=== PATIENT | female | born 1950 | race Caucasian/White ===

== ENCOUNTER 2019-04-18 17:34 | Emergency (ER) | payer BC, MEDICARE ==
[~2019-04-18] VITALS: Ht 162.6 cm; Wt 77.0 kg
[~2019-04-18 17:34] MED LIST: MECL12.5 PO; ONDA8TAB6 PO
[2019-04-18 17:59] VITALS: BP 160/86
[2019-04-18 18:44] LABS: CLARITY,URINE CLOUDY (Clear); COLOR,URINE YELLOW (Yellow); GLUCOSE, URINE NEGATIVE (Neg); KETONES,URINE NEGATIVE (Neg); LEUKOCYTE ESTERASE ,URINE MODERATE (Neg); NITRITES, URINE NEGATIVE (Neg); OCCULT BLOOD,URINE LARGE (Neg); PH,URINE 6.5 (4.8-8.0); PROTEIN,URINE NEGATIVE (Neg); UROBILINOGEN,URINE 0.2 E.U/dL (0.2-1.0)
[2019-04-18 18:47] LABS: UA COLLECTION TYPE CLN CATCH MIDSTREAM
[2019-04-18 18:55] LABS: BACTERIA,URINE 2+ /HPF (Neg); MUCUS STRANDS NONE SEEN /LPF (Neg); RBC,URINE 50-100 /HPF (0-2); SQUAMOUS EPITHELIAL CELL,UR NONE SEEN /LPF (FEW); WBC CLUMPS,URINE MODERATE /HPF (NEGATIVE); WBC,URINE 50-100 /HPF (0-4)
[2019-04-18] MEDS ORDERED: CEPH500C5 PO (19:08)
[2019-04-18] MEDS ORDERED: PHEN-716 PO (19:08)
== END 2019-04-18 19:22 | disposition home or self-care (01) ==
LOC: ER 17:34
DX: N39.0 Urinary tract infection, site not specified (principal); Z88.1 Allergy status to other antibiotic agents; Z88.8 Allergy status to other drugs, medicaments and biological substances
CPT/HCPCS: 81001; 87077; 87088; 87186; 99283

== ENCOUNTER 2023-07-09 08:05 | Day surgery (SDC) | payer MEDICARE ==
[2023-07-09] VITALS (9 sets, daily range): BP systolic 125–186; BP diastolic 53–84; PULSE 65–79; RESP 9–17; TEMP 98; O2SAT 95–97
[~2023-07-09] VITALS: Ht 162.6 cm; Wt 83.8 kg
[~2023-07-09 08:05] MED LIST changes: +PHEN-716 PO
[2023-07-09] MEDS ORDERED: fentaNYL/PF 50MCG/1 ML 2ML syringe ONE (08:25)
[2023-07-09] MEDS ORDERED: LIDOcaine 1% (10mg/ml) 2ml vial ONE (08:25)
[2023-07-09] MEDS ORDERED: verapamil 2.5 mg/ml inj IV ONE (08:25)
[2023-07-09] MEDS ORDERED: midazolam 1 mg/ML 2ml injection ONE (08:26)
[2023-07-09] MEDS ORDERED: heparin 1,000unit/ml 10ml vial 10 ML ONE (08:26)
[2023-07-09] MEDS ORDERED: iohexol 350MG/ML 100ml bottle IV ONE (08:26)
[2023-07-09] MEDS ORDERED: iohexol 350 MG/ML 50ML vial IV ONE (08:26)
[2023-07-09] MEDS ORDERED: nitroGLYCERIN 500mcg/5mL D5W 5 ML IV ONE (08:29)
[2023-07-09] MEDS ORDERED: ASPI81TA52 PO (08:32)
[2023-07-09] MEDS ORDERED: ROSU10TA28 PO (08:32)
[2023-07-09] MEDS: diphenhydrAMINE 25mg capsule PO PRN (08:38)
[2023-07-09] MEDS: normal saline 1,000 ML IV SCH (08:39)
[2023-07-09] MEDS: LORazepam 0.5 MG tablet PO PRN (08:40)
[2023-07-09 08:55] LABS: APTT 29 SECONDS (22-32)
[2023-07-09 09:21] LABS: BASOPHILS # (AUTO) 0.1 X10'3 (0-0.2); BASOPHILS % (AUTO) 0.7 % (0-1); EOSINOPHILS # (AUTO) 0.1 X10'3 (0-0.9); EOSINOPHILS % (AUTO) 1.6 % (0-6); HEMATOCRIT 43.5 % (35.0-45.0); HEMOGLOBIN 14.4 g/dl (12.0-16.0); LYMPHOCYTES # (AUTO) 1.8 X10'3 (1.1-4.8); LYMPHOCYTES % (AUTO) 24.2 % (21-51); MEAN CORPUSCULAR HGB CONC 33.1 g/dL (33.0-36.5); MEAN CORPUSCULAR VOLUME 90.6 FL (78-98); MEAN PLATELET VOLUME 7.9 FL (7.4-10.4); MONOCYTES # (AUTO) 0.8 X10'3 (0-0.9); MONOCYTES % (AUTO) 11.3 % (2-12); NEUTROPHILS # (AUTO) 4.7 X10'3 (1.8-7.7); NEUTROPHILS % (AUTO) 62.2 % (42-75); PLATELET COUNT 305 X10'3 (140-440); RED CELL DISTRIBUTION WIDTH 14.1 % (11.5-14.5); WHITE BLOOD COUNT 7.5 X10'3 (4.5-11.0)
[2023-07-09 09:41] LABS: PROTHROMBIN TIME 10.4 SECONDS (9.0-12.0)
[2023-07-09 10:11] LABS: ALBUMIN 3.8 G/DL (3.4-5.0); ANION GAP 9 (8-16); BLOOD UREA NITROGEN 13 MG/DL (7-18); BUN/CREATININE RATIO 15.7 (10.0-20.0); CALCIUM 8.5 MG/DL (8.5-10.1); CHLORIDE 108 MMOL/L (99-107); CREATININE 0.83 MG/DL (0.40-0.90); GLUCOSE 102 MG/DL (70-104); MAGNESIUM 2.1 MG/DL (1.5-2.4); POTASSIUM 3.9 MMOL/L (3.5-5.1); PRO BRAIN NATRIURETIC PEPTIDE 118 PG/ML (0-125); SODIUM 143 MMOL/L (135-145); TOTAL CARBON DIOXIDE 26.5 MMOL/L (24-32); eCRCL 51 ML/MIN; eGFR 67 ML/MIN
== END 2023-07-09 13:00 | disposition home or self-care (01) ==
LOC: SSTAY O 08:05
PROVIDERS: ATTEND Internal Medicine Cardiovascular Disease
DX: R94.39 Abnormal result of other cardiovascular function study (principal); I25.10 Atherosclerotic heart disease of native coronary artery without angina pectoris; I27.20 Pulmonary hypertension, unspecified; F41.9 Anxiety disorder, unspecified; F32.A Depression, unspecified; K21.9 Gastro-esophageal reflux disease without esophagitis; G89.29 Other chronic pain; M19.90 Unspecified osteoarthritis, unspecified site; J45.909 Unspecified asthma, uncomplicated; E66.3 Overweight; Z68.31 Body mass index [BMI] 31.0-31.9, adult; Z79.899 Other long term (current) drug therapy; Z79.01 Long term (current) use of anticoagulants; Z98.51 Tubal ligation status; Z98.890 Other specified postprocedural states; Z88.1 Allergy status to other antibiotic agents; Z88.8 Allergy status to other drugs, medicaments and biological substances; Z82.49 Family history of ischemic heart disease and other diseases of the circulatory system
CPT/HCPCS: 36415; 76937; 80048; 83735; 83880; 85025; 85610; 85730; 93005; 93460; J1644; J2250; J3010; J3490; J7030; Q0163; Q9967; 99152; 99153; A6258; A6402; C1725; C1751; C1894

== ENCOUNTER → 2023-08-03 | Outpatient (CLI) | payer MEDICARE ==
[~2023-08-03] MED LIST changes: +ASPI81TA52 PO; -MECL12.5 PO; -ONDA8TAB6 PO; -PHEN-716 PO; +ROSU10TA28 PO
[2023-08-03 14:57] VITALS: PULSE 72; RESP 16; O2SAT 98
[2023-08-03] MEDS: albuterol 2.5 MG/3 ML nebule NEB ONE (15:23)
== END | disposition home or self-care (01) ==
LOC: RT 14:10
PROVIDERS: ATTEND Family Medicine
DX: R06.02 Shortness of breath (principal)
CPT/HCPCS: 94060; 94760; A6449

== ENCOUNTER 2024-08-16 22:41 | Emergency (ER) | payer MEDICARE ==
[~2024-08-16] VITALS: Ht 162.6 cm; Wt 84.9 kg
[~2024-08-16 22:41] MED LIST changes: -ROSU10TA28 PO; +ROSU10TA72 PO
[2024-08-16 23:15] VITALS: TEMP 98
[2024-08-16] MEDS ORDERED: LOSA-415 PO (23:16)
[2024-08-17] MEDS ORDERED: iohexol 350MG/ML 100ml bottle IV ONE (00:09)
[2024-08-17 00:12] LABS: BASOPHILS # (AUTO) 0.1 X10'3 (0-0.2); BASOPHILS % (AUTO) 0.6 % (0-1); EOSINOPHILS # (AUTO) 0.3 X10'3 (0-0.9); HEMATOCRIT 43.6 % (35.0-45.0); HEMOGLOBIN 14.6 g/dl (12.0-16.0); LYMPHOCYTES # (AUTO) 2.5 X10'3 (1.1-4.8); MEAN CORPUSCULAR HEMOGLOBIN 30.1 PG (27.0-31.0); MEAN CORPUSCULAR HGB CONC 33.6 g/dL (33.0-36.5); MEAN CORPUSCULAR VOLUME 89.5 FL (78-98); MEAN PLATELET VOLUME 8.5 FL (7.4-10.4); MONOCYTES # (AUTO) 1.2 X10'3 (0-0.9); MONOCYTES % (AUTO) 13.4 % (2-12); NEUTROPHILS # (AUTO) 4.9 X10'3 (1.8-7.7); PLATELET COUNT 300 X10'3 (140-440); RED BLOOD COUNT 4.87 X10'6 (4.20-5.60); RED CELL DISTRIBUTION WIDTH 13.9 % (11.5-14.5); WHITE BLOOD COUNT 8.9 X10'3 (4.5-11.0)
[2024-08-17 00:15] LABS: ALBUMIN 3.9 G/DL (3.4-5.0); ANION GAP 9 (8-16); BLOOD UREA NITROGEN 16 MG/DL (7-18); BUN/CREATININE RATIO 22.5 (10.0-20.0); CALCIUM 8.7 MG/DL (8.5-10.1); CHLORIDE 106 MMOL/L (99-107); CREATININE 0.71 MG/DL (0.40-0.90); GLUCOSE 112 MG/DL (70-104); POTASSIUM 3.7 MMOL/L (3.5-5.1); SODIUM 142 MMOL/L (135-145); TOTAL CARBON DIOXIDE 27.5 MMOL/L (24-32); eCRCL 58 ML/MIN; eGFR 80 ML/MIN
[2024-08-17] MEDS: ketorolac trometh 15mg/ml vial 15 MG/ML ML IV ONE (00:20)
[2024-08-17] MEDS: OLANZapine **IM** 10 mg inj. IM ONE (00:23)
[2024-08-17] MEDS: ipratropium/albuterol 3ml nebule NEB ONE (01:05)
[2024-08-17 01:11] VITALS: PULSE 75; RESP 18; O2SAT 98
[2024-08-17 01:14] VITALS: PULSE 79; RESP 16; RESP 18; O2SAT 99
[2024-08-17 02:28] VITALS: BP 157/93; PULSE 82; RESP 13; O2SAT 97
== END 2024-08-17 02:29 | disposition home or self-care (01) ==
LOC: ER 22:42
DX: R20.0 Anesthesia of skin (principal); J45.909 Unspecified asthma, uncomplicated; I10 Essential (primary) hypertension; G43.909 Migraine, unspecified, not intractable, without status migrainosus; Z88.1 Allergy status to other antibiotic agents; Z79.82 Long term (current) use of aspirin
CPT/HCPCS: 36415; 70450; 70496; 70498; 80048; 84484; 85025; 93005; 94640; 96372; 96374; 99285; J1885; J3490; Q9967; 94760